=== PATIENT | female | born 1970 | race Caucasian/White ===

== ENCOUNTER 2016-09-23 11:48 | Day surgery (SDC) | payer MEDICARE ==
[~2016-09-23 11:48] MED LIST: ATIVAN1 M1 PO; ATIVAN1 MG PO; BACTRIM DS TABL1 TAB PO; BIRTH CONTROL PILL; CLINDAMYCIN HC300 MG PO; COLACE100 MG; COMBIVENT INH14.7 GM; DARVOCET-N 1001 TAB PO; DELTASONE10 MG PO; DOXY-LEMMON100 M PO; ESKALITH CR450 MG; ESTRADIOL1 MG PO; EXCEDRIN MIGRAI1 TAB PO; FERROCITE324 MG PO; FLEXERIL10 MG PO; FLOVENT HFA10.6 GM; FLUDROCORTISON0.1 MG PO; HYDROCORTISONE10 M1 PO; HYDROCORTISONE5 MG PO; IBUPROFEN200 MG PO; INVEGA6 MG/BOTTL PO; KEFLEX500 MG PO; KLONOPIN0.5 MG PO; KLONOPIN1 MG PO; LAMICTAL100 MG PO; LEVOXYL100 MCG PO; LEVOXYL88 MCG; LITHIUM CARBON300 MG; LITHIUM CARBON450 MG PO; LITHIUM PO; LO/OVRAL-281 TAB PO; LOPRESSOR25 MG/TA1 GT; LOPRESSOR50 MG PO; LORAZEPAM2 MG PO; LUTERA1 TAB PO; LUVOX CR100 MG PO; LUVOX CR150 MG PO; MEDROL4 MG/DOSE- PO; MIDRIN1 CAP PO; MIRALAX17 G1 PO; MOTRIN800 MG PO; MULTIVITAMIN1 TAB PO; NEURONTIN300 MG PO; NEXIUM40 MG PO; NORCO 5/325 TAB1 TAB PO; OMEPRAZOLE20 MG PO; PAXIL CR25 M1 PO; PAXIL CR25 MG PO; PERCOCET 5/3251 TAB PO; PHENERGAN25 MG PO; PRENATAL1 TAB PO; PRILOSEC40 MG PO; PROGESTERONE100 MG PO; PROVENTIL HFA6.7 GM IH; PROVENTIL17 GM; REGLAN10 MG PO; RISPERDAL3 MG PO; STOOL SOFTENER PO; SYNTHROID125 MC1 PO; TOPAMAX200 MG PO; TOPROL XL25 MG PO; ULTRACET1 TAB PO; VITAMIN B-1000 MCG/ IJ; VITAMIN D1000 UNIT PO; WOMEN'S DAILY1 EAC2 PO; ZITHROMAX250MG Z-PAK PO; ZOFRAN4 MG PO; ZOLOFT50 MG; ZYPREXA15 MG PO; ZYPREXA20 MG; ZYPREXA20 MG PO; ZYPREXA5 MG PO; [UNRECOGNIZED DRUG - OTHER] PO
[2016-09-23] MEDS ORDERED: TRAMADOL HCL50 M2 PO (12:25)
[2016-09-23] MEDS ORDERED: WELLBUTRIN XL150 M1 PO (12:27)
[2016-09-23] MEDS ORDERED: REGLAN10 M2 PO (12:28)
[2016-09-23] MEDS ORDERED: HYDROCODON-ACE1 EA16 PO (12:28)
[2016-09-23] MEDS ORDERED: SLOW I PO (12:29)
[2016-09-23] MEDS ORDERED: AMITIZA24 MC1 PO (12:29)
[2016-09-23] MEDS ORDERED: PRENATAL-U CAPS1 CAP PO (12:30)
[2016-09-23 12:53] LABS: ANION GAP 14 mmol/L (0-20); BLOOD UREA NITROGEN 9 mg/dl (6-24); CALCIUM 9.2 mg/dl (8.5-10.5); CARBON DIOXIDE-VENOUS 21 mmol/L (22-32); CHLORIDE 110 mmol/l (96-110); CREATININE 1.48 mg/dl (0.50-1.10); GLUCOSE 115 mg/dL (70-110); POTASSIUM 3.9 mmol/L (3.7-5.1); SODIUM 141 mmol/L (135-145); eGFR VALUE FOR BLACK 48 mL/Min
== END 2016-09-23 15:10 ==
LOC: SHSC 11:48 → ENDOS 13:25
PROVIDERS: Anesthesiology
PROC: 0DB88ZX Excision of Small Intestine, Via Natural or Artificial Opening Endoscopic, Diagnostic (ICD-10-PCS; principal; 2016-09-23)
PROC: 0DB58ZX Excision of Esophagus, Via Natural or Artificial Opening Endoscopic, Diagnostic (ICD-10-PCS; 2016-09-23)
PROC: 0DB68ZX Excision of Stomach, Via Natural or Artificial Opening Endoscopic, Diagnostic (ICD-10-PCS; 2016-09-23)
PROC: 0DJD8ZZ Inspection of Lower Intestinal Tract, Via Natural or Artificial Opening Endoscopic (ICD-10-PCS; 2016-09-23)
DX: K31.9 Disease of stomach and duodenum, unspecified (principal); E03.9 Hypothyroidism, unspecified; F41.9 Anxiety disorder, unspecified; F31.9 Bipolar disorder, unspecified; Z88.0 Allergy status to penicillin; Z88.8 Allergy status to other drugs, medicaments and biological substances; Z79.899 Other long term (current) drug therapy; Z98.890 Other specified postprocedural states